=== PATIENT | male | born 2000 | race Caucasian/White ===

== ENCOUNTER 2021-04-02 13:40 | Outpatient (CLI) | payer MEDICAID, SELFPAY ==
--- NOTE | 2021-04-02 13:54 | XR_ITS ---
WS: [id number] Exam: XR ankle RT 2V [id number] Date/Time of Exam: 04/02/2021 2:05 PM Reason For Exam: ACUTE R ANKLE PAIN No acute fracture or dislocation. Mild lateral soft tissue swelling. The ankle mortise appears normal . XR/XR ankle RT 2V [id number] IMPRESSION: 1. Mild lateral soft tissue swelling-no fracture.
== END 2021-04-02 13:41 | disposition home or self-care (01) ==
PROVIDERS: PCP Nurse Practitioner Family; Visit Provider Nurse Practitioner Family
DX: M25.571 Pain in right ankle and joints of right foot (principal); M79.89 Other specified soft tissue disorders
CPT/HCPCS: 73600